=== PATIENT | male | born 1955 | race Caucasian/White ===

== ENCOUNTER 2021-05-13 07:29 | Outpatient (CLI) | payer BC, SELFPAY ==
--- NOTE | 2021-05-20 15:45 | WPDHOMESLEEP ---
Sleep Study - Home Unattended Date of Study: 05/13/21 Ordering Provider: Gavin Ricketts MD Interpreting Provider: Sultana Richards, DO Home Sleep Study Type: Apnea Link Air Height: 1.73 m Weight: 96.162 kg Body Mass Index: 32.2 Neck Circumference (inches): 16.5 [place]: 2 Reason for Sleep Study Unrefreshing sleep and daytime hypersomnia Sleep History The patient is a 65-year-old male with anxiety, GERD, hypertension, hyperlipidemia, lumbar go and vitamin D deficiency that had a home sleep test ordered by his primary care physician due to unrefreshing sleep and daytime hypersomnia. 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 He denies awakening from sleep short of breath. He frequently awakens at night with heartburn, belching or cough. He frequently snores loud enough that others complain. He occasionally has trouble sleeping when he has a cold. He denies waking up gasping for air throughout the night. He frequently has breathing problems at night observed by himself or others. He denies sweating excessively at night. He denies having heart palpitations or irregular heartbeats during the night. He denies falling asleep during the day and while driving. He denies sleep paralysis and cataplexy. He denies having trouble at work due to sleepiness. He rarely experiences vivid dreamlike scenes upon awakening or falling asleep. She he denies having nightmares. He occasionally remembers his dreams. He denies having thoughts racing through his mind. He denies feeling sad or depressed. He occasionally has anxiety. He frequently has muscular tension. He denies noticing parts of his body jerk. He denies kicking during the night. He denies having crawling and aching feelings in his legs as well as leg pain during the night. He denies grinding his teeth during sleep awakening with morning jaw pain. He is frequently bothered by pain during the day and occasionally awakened by pain during the night. He frequently wakes up feeling stiff in the morning with sore or achy muscles. He constantly wakes up pain in the neck, spine and other joints. He goes to bed at 10:00 p.m. on both weekdays and weekends. He takes him 10 minutes to fall asleep. He wakes up throughout the night to urinate. He can fall back asleep within 10 minutes. He wakes up at 5:30 a.m. on weekdays and 7:30 a.m. on the weekends. He typically gets 8 hours of sleep per night. he does not stay in bed after waking up in the morning. He currently lives with his . He does not consume any caffeinated beverages within 2 hours of bedtime. He does not engage in physical exercise before bedtime. He will watch television before falling asleep. He will take naps in the afternoon or the evening but they are not refreshing. He drinks 2 cups of caffeinated beverage per day. Will drink alcohol on the weekends. He denies tobacco and recreational drug use. [facility] Past Medical History Medical History Anxiety Back pain BMI 32.0-32.9,adult Chondrocalcinosis of both knees Degenerative arthritis of knee, bilateral Elevated fasting glucose Encounter to establish care GERD (gastroesophageal reflux disease) Hyperlipidemia Hypersomnia Hypertension Snoring Vitamin D deficiency Witnessed apneic spells Surgical History Surgical History History of carpal tunnel release of both wrists 2018 History of gastric surgery exploratory stomach surgery 1979 Hx of hernia repair stomach 1995 groin Previous back surgery 1988 2003 2011 Family History Family History Mother Cerebrovascular accident Diabetes mellitus Hypertension Depression Thyroid disorder Father Family history of Alzheimer's disease Family history of heart disease in male family member before age 55 Grandparent Cerebrovascular accident
[2021-05-20 15:54] VITALS: BMI 32.2
== END 2021-05-19 13:15 | disposition home or self-care (01) ==
LOC: ANHCSM 07:29
PROVIDERS: PCP Nurse Practitioner Family; Visit Provider Family Medicine
DX: G47.30 Sleep apnea, unspecified (principal); G47.33 Obstructive sleep apnea (adult) (pediatric)
CPT/HCPCS: 95806

== ENCOUNTER 2021-09-23 08:45 | Outpatient (RCR) | payer BC, SELFPAY ==
--- NOTE | 2021-09-09 15:59 | PTOPEVAL ---
Thank you for referring Wisam Stewart to [facility].? He is scheduled to be seen for therapy? 1x/week for 3 weeks. Please review, sign, date and return this plan of care KATHI. I agree with and certify that the following plan of care is medically necessary. Referring Physician Date Attending Provider: Eduin Matias MD Past Medical History Source of Past Medical History Patient Cardiovascular History Hx Hypertension Yes: meds Gastrointestinal History Hx Other Gastrointestinal Disorders Yes: exploratory abdominal surgery- at 22 yr old Musculoskeletal History Hx Back Pain Yes: intermittent Hx Orthopedic Surgery Yes: B carpal tunnel surgery Hx Spinal Surgery Yes: lumbar 3x; Hx Other Musculoskeletal Disorders Yes: B knee pain, have had injections Evaluation Information Diagnosis R distal tibial fracture- non surgical Onset July 19, 2021 Subjective Information had walking boot and crutches; Query Text:As Reported By Patient/ stopped using crutches few Family weeks ago; have been doing some exercises and moving ankle; is up and moving all day long, working on getting stronger and back to all of his normal things he does; Prior Level of Function Occupation heavy equiptment custom feed corn operator Activity of Daily Living Ability Independent Additional Prior Level of Function is off work now due to R ankle Comments injury; job does not require any lifting, drives back hoe; is getting stronger but not walking as fast and being careful not to twist ankle Pain Assessment Pain Scale Pain Scale Used Numeric (1 - 10) Self Report Pain Assessment Right Ankle(s) Reported Pain Level 1 Pain Description Aching,Soreness,Tightness Pain Frequency Chronic,Continuous Other Pain Description medial lower leg Lowest Pain Intensity 1 Greatest Pain Intensity 2 Pain Aggravating Factors Weight Bearing/Standing Additional Pain Score Comments can be up and walking around all day; Interventions Used Interventions Used By Clinicians Education,Exercise Gross Lower Extremity Range of Motion in long sitting: R ankle Comments active: DF 3'; PF 45', inversion 30', eversion 20'; R hip and knee WNL in supine Gross Lower Extremity Strength functional strength testing: -
--- NOTE | 2021-10-24 13:46 | PCPTNOTE ---
PHYSICAL THERAPY DISCHARGE REPORT 10-24-21 Attending Provider: Eduin Matias MD Patient:Wisam Stewart Date of :1955 Wisam has not returned for any further treatments since 09/23/2021, therefore he will be discharged at this time. He received 3 PT sessions, from September 09 to , then stopped attending therapy.The goals were not assessed. Thank you for referring this patient to [facility]. Please review, sign, date and return this discharge summary KATHI. I have been updated about the patient's current status and I agree with discharge from the above service at this time. Referring Physician Date
== END 2021-10-27 09:03 | disposition home or self-care (01) ==
LOC: ANHPT 08:45
PROVIDERS: PCP Nurse Practitioner Family; Visit Provider Orthopaedic Surgery
DX: S82.201D Unspecified fracture of shaft of right tibia, subsequent encounter for closed fracture with routine healing (principal)
CPT/HCPCS: 97110; 97112; 97140; 97161

== ENCOUNTER → 2022-04-13 08:39 | Outpatient (CLI) | payer BC, SELFPAY ==
--- NOTE | ~2022-04-13 | XR_ITS ---
Left Hand Technique: PA, oblique, and lateral views were obtained. Clinical History: Pain Findings: No acute fracture or dislocation is seen. Osseous alignment is anatomic. Joint spaces are p reserved. Soft tissues are unremarkable. Impression: Unremarkable left hand. 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
--- NOTE | ~2022-04-13 | XR_ITS ---
EXAMINATION: XR hand RT min 3V INDICATION: Right hand pain TECHNIQUE: Three views of the right hand are obtained. COMPARISON: None available FINDINGS: Bone alignment is normal. There is no acute fracture. There is moderate osteoarthritis invo lving multiple interphalangeal joints and in multiple metacarpophalangeal joints. The soft tissues ar e unremarkable. IMPRESSION: 1. Polyarticular osteoarthritis. 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
== END ==
PROVIDERS: PCP Nurse Practitioner Family; Visit Provider Nurse Practitioner Family
DX: M79.642 Pain in left hand (principal); M19.041 Primary osteoarthritis, right hand
CPT/HCPCS: 73130

== ENCOUNTER 2022-08-06 02:47 | Day surgery (SDC) | payer BC, SELFPAY ==
[2022-07-22 10:18] VITALS: BMI 30.8
--- NOTE | 2022-08-05 20:07 | PM.HPGS ---
History of Present Illness History of Present Illness Consent: Risks, benefits, and alternatives have been discussed and questions answered. Patient agrees to proceed with procedure. Chief complaint: family hx colon polyps, hx of colon polyps Narrative: Wisam Stewart is a 66 year old male referred for colon cancer screening Review of Systems Review of Systems: All systems reviewed & are unremarkable except as noted in HPI and below PMFSH Past Medical History Medical History Anxiety Back pain BMI 31.0-31.9,adult BMI 32.0-32.9,adult Chondrocalcinosis of both knees Degenerative arthritis of knee, bilateral Elevated fasting glucose Encounter to establish care GERD (gastroesophageal reflux disease) Hyperlipidemia Hypersomnia Hypertension Left hand pain Nausea and vomiting Nondisplaced fracture of shaft of right tibia Right hand pain Snoring Vitamin D deficiency Witnessed apneic spells Surgical History Surgical History History of carpal tunnel release of both wrists 2018 History of gastric surgery exploratory stomach surgery 1979 Hx of hernia repair stomach 1995 groin Previous back surgery 1988 2003 2011 Family History Family History Mother Cerebrovascular accident Diabetes mellitus Hypertension Depression Thyroid disorder Father Family history of Alzheimer's disease Family history of heart disease in male family member before age 55 Grandparent Cerebrovascular accident Social History Social History Smoking status: Never smoker Second hand tobacco smoke exposure: No Alcohol intake: current Alcohol use details: 2 Substance use: current Substance use type: does not use Living arrangements: with family Gender identity (if verbalized by the patient): Male Spiritual care concerns: No Meds Home Medications and Allergies Home Medications Medication Instructions Recorded Confirmed Type cholecalciferol (vitamin D3) 125 125 mcg PO DAILY 06/12/20 08/06/22 History mcg (5,000 unit) capsule melatonin 5 mg capsule 5 mg PO HS PRN Sleep 06/12/20 08/06/22 History omeprazole magnesium 20 mg 20 mg PO DAILY 06/12/20 08/06/22 History tablet,delayed release (Prilosec OTC) zinc 50 mg tablet 50 mg PO DAILY 06/12/20 08/06/22 History ascorbic acid (vitamin C) 500 mg 250 mg PO DAILY 04/08/21 08/06/22 History tablet loratadine 10 mg tablet 10 mg PO DAILY PRN allergy symptoms 04/08/21 08/06/22 History vamnwrihrllt-fbc-bjdxc acid-vit 1 tablet PO DAILY 07/24/21 08/06/22 History K-lycop 400 mcg-20 mcg-370 mcg tablet (Men's 50 Plus Multivitamin) omega 3-qzs-hqi-fish oil 100 1 cap PO DAILY 07/24/21 08/06/22 History mg-160 mg-1,000 mg capsule (Fish Oil) losartan 50 mg tablet 50 mg PO DAILY #90 tabs 07/29/21 08/06/22 Rx acetaminophen 650 mg 650 mg PO Q8H 07/31/21 08/06/22 History tablet,extended release (Tylenol Arthritis Pain) paroxetine HCl 20 mg tablet 20 mg PO DAILY #90 tabs 05/19/22 08/06/22 Rx fluticasone propionate 50 1 spray intranasal DAILY 07/22/22 08/06/22 History mcg/actuation nasal spray,suspension Allergies Allergy/AdvReac Type Severity Reaction Status Date / Time No Known Allergies Allergy Verified 08/06/22 11:29 Exam Const: General: alert Orientation/consciousness: patient oriented x3 Resp: Auscultation: clear to auscultation bilaterally Cardio: Rhythm: regular rhythm GI: GI Palp: Yes Soft to palpation and No Tenderness to palpation present (GI) Neuro: General: patient oriented x3 Assessment and Plan Assessment and plan (1) Colon cancer screening: Code(s): Z12.11 - Encounter for screening for malignant neoplasm of colon Status: Acute Assessment and Plan: Colonoscopy wi
[2022-08-06 11:31] VITALS: BP 131/77; PULSE 74; RESP 16; TEMP 36.1; O2SAT 97; BMI 31.0
[2022-08-06] MEDS: LACTATED RINGERS 1,000 ML 150 ML IV CONT (11:37)
--- NOTE | 2022-08-06 11:58 | WPDANESEPPF ---
Anes - Initial Pre Proc Eval Procedure: Operation Date: 08/06/22 13:00 Proposed Procedures p Colonoscopy - Kyle Urbano MD Date/Time: 08/06/22 11:58 Surgeon: Kyle Urbano MD Pre Op Diagnosis: family hx colon polyps, hx of colon polyps Patient Data Age: 66 Gender: M Height: 1.73 m Weight: 92.7 kg Last Vital Signs Temp 97 F L 08/06/22 11:31 Pulse 74 08/06/22 11:31 Resp 16 08/06/22 11:31 BP 131/77 08/06/22 11:31 Pulse Ox 97 08/06/22 11:31 O2 Del Method Room Air 08/06/22 11:31 Allergies Allergy/AdvReac Type Severity Reaction Status Date / Time No Known Allergies Allergy Verified 08/06/22 11:29 Home Medications Medication Instructions Recorded Confirmed Type cholecalciferol (vitamin D3) 125 125 mcg PO DAILY 06/12/20 08/06/22 History mcg (5,000 unit) capsule melatonin 5 mg capsule 5 mg PO HS PRN Sleep 06/12/20 08/06/22 History omeprazole magnesium 20 mg 20 mg PO DAILY 06/12/20 08/06/22 History tablet,delayed release (Prilosec OTC) zinc 50 mg tablet 50 mg PO DAILY 06/12/20 08/06/22 History ascorbic acid (vitamin C) 500 mg 250 mg PO DAILY 04/08/21 08/06/22 History tablet loratadine 10 mg tablet 10 mg PO DAILY PRN allergy symptoms 04/08/21 08/06/22 History fkhibtyhnsaf-otd-isuwv acid-vit 1 tablet PO DAILY 07/24/21 08/06/22 History K-lycop 400 mcg-20 mcg-370 mcg tablet (Men's 50 Plus Multivitamin) omega 3-krn-itj-fish oil 100 1 cap PO DAILY 07/24/21 08/06/22 History mg-160 mg-1,000 mg capsule (Fish Oil) losartan 50 mg tablet 50 mg PO DAILY #90 tabs 07/29/21 08/06/22 Rx acetaminophen 650 mg 650 mg PO Q8H 07/31/21 08/06/22 History tablet,extended release (Tylenol Arthritis Pain) paroxetine HCl 20 mg tablet 20 mg PO DAILY #90 tabs 05/19/22 08/06/22 Rx fluticasone propionate 50 1 spray intranasal DAILY 07/22/22 08/06/22 History mcg/actuation nasal spray,suspension Patient hx anesthesia problems: none Family hx anesthesia problems: none Results Review: All pre-operative results and documents have been reviewed as part of the pre-operative evaluation. [facility] Past Medical History Medical History (Updated 08/05/22 @ 20:08 by Kyle Urbano MD) Anxiety Back pain BMI 31.0-31.9,adult BMI 32.0-32.9,adult Chondrocalcinosis of both knees Degenerative arthritis of knee, bilateral Elevated fasting glucose Encounter to establish care GERD (gastroesophageal reflux disease) Hyperlipidemia Hypersomnia Hypertension Left hand pain Nausea and vomiting Nondisplaced fracture of shaft of right tibia Right hand pain Snoring Vitamin D deficiency Witnessed apneic spells Surgical History Surgical History History of carpal tunnel release of both wrists 2017 History of gastric surgery exploratory stomach surgery 1979 Hx of hernia repair stomach 1994 groin Previous back surgery 1988 2003 2011 Family History Family History Mother Cerebrovascular accident Diabetes mellitus Hypertension Depression Thyroid disorder Father Family history of Alzheimer's disease Family history of heart disease in male family member before age 55 Grandparent Cerebrovascular accident Social History Social History (Updated 04/13/22 @ 08:09 by Ana Joyner [facility]) Smoking status: Never smoker Second hand tobacco smoke exposure: No Alcohol intake: current Alcohol use details: 2 Substance use: current Substance use type: does not use Living arrangements: with family Gender identity (if verbalized by the patient): Male Spiritual care concerns: No Anes - Eval Final PreProcedure Day of Procedure 08/06/22 11:58 Patient weight: normal Heart: regular rate and rhythm Lungs: clear to auscultation Airway: Mallampati scale class II Neurological: alert and oriented Last oral intake: >/= 8 hours ASA classifi
[2022-08-06 12:50] VITALS: BP 115/68; PULSE 68; RESP 19; O2SAT 95
[2022-08-06 13:00] VITALS: BP 125/79; PULSE 75; RESP 16; O2SAT 95
[2022-08-06 13:10] VITALS: BP 135/90; PULSE 66; RESP 15; O2SAT 99
== END 2022-08-06 13:22 | disposition home or self-care (01) ==
PROVIDERS: PCP Nurse Practitioner Family; Visit Provider Internal Medicine Gastroenterology
PROC: 0DJD8ZZ Inspection of Lower Intestinal Tract, Via Natural or Artificial Opening Endoscopic (ICD-10-PCS; CPT 45378; principal; 2022-08-06 13:00)
DX: Z12.11 Encounter for screening for malignant neoplasm of colon (principal); Z86.010 Personal history of colon polyps; Z83.71 Family history of colonic polyps; I10 Essential (primary) hypertension; E78.5 Hyperlipidemia, unspecified; K21.9 Gastro-esophageal reflux disease without esophagitis; E55.9 Vitamin D deficiency, unspecified; F41.9 Anxiety disorder, unspecified
CPT/HCPCS: 45378; J2704; J7120

== ENCOUNTER → 2022-12-02 15:06 | Outpatient (CLI) | payer BC, SELFPAY ==
--- NOTE | ~2022-12-02 | US_ITS ---
US soft tissue abdomen 12/02/2022 15:25 Indication: Abdominal pain and swelling. Palpable lump. Procedure: High-resolution Limited ultrasound of the abdomen Comparison: No prior studies for comparison. Findings: To the right of midline superior to the umbilicus there is a focal discontinuity of the abd ominal wall musculature with intrusion of what appears to be mobile bowel, consistent with hernia. Th e neck of the hernia measures 8 mm. There is movement of bowel within the hernia with Valsalva maneuv er. Impression: 1: Focal anterior abdominal wall hernia measuring 8 mm containing bowel to the right of midline super ior to the umbilicus. Reviewed, dictated and finalized at location L. Impression: 1: Focal anterior abdominal wall hernia measuring 8 mm containing bowel to the right of midline superior to the umbilicus.
== END ==
PROVIDERS: PCP Family Medicine; Visit Provider Nurse Practitioner Family
DX: R19.00 Intra-abdominal and pelvic swelling, mass and lump, unspecified site (principal)
CPT/HCPCS: 76705

== ENCOUNTER → 2023-01-26 09:15 | Outpatient (CLI) | payer BC, SELFPAY ==
--- NOTE | ~2023-01-26 | CT_ITS ---
EXAMINATION: CT abdomen pelvis wo con DATE: 01/26/2023 09:40 INDICATION: Incisional hernia without obstruction or gangrene. TECHNIQUE: Computed tomography (CT) of the abdomen and pelvis was performed without intravenous contr ast. Automated exposure control and iterative reconstruction technique were employed. The dose-length product was 1077.78 mGy-cm. COMPARISON: CT abdomen and pelvis 06/07/15 FINDINGS: The visualized portions of the lung bases demonstrate mild atelectasis. There is mild scarr ing in paraspinal right lower lobe. A calcified right lung nodule and calcified right hilar and media stinal lymph nodes are consistent with old granulomatous disease. No pleural effusion. The heart size is normal. There are coronary artery calcifications. No pericardial effusion. There are cysts in the liver measuring up to 2.2 cm. There is diffuse hepatic steatosis. There are gallstones in the gallbl adder, which is normal in size. The spleen, pancreas, adrenal glands, and kidneys are normal. There i s no urolithiasis. There is diverticulosis of the colon without evidence of diverticulitis. There are no dilated loops of bowel. The appendix is normal. The prostate is mildly enlarged. There is a left inguinal hernia containing fat. Aortic atherosclerosis is noted. There are no pathologically enlarged lymph nodes. There is no free intraperitoneal fluid. There is a supraumbilical ventral hernia contai gustavo fat. There are changes of anterior fusion procedure at L5-S1 and posterior fusion procedure from L3 to L5. There is severe lumbar spondylosis. There are chronic compression fractures of T12 and L1. IMPRESSION: 1. Supraumbilical ventral hernia containing fat. 2. Left inguinal hernia containing fat. Reviewed, dictated and finalized at location E. IDENT AND CEO
== END ==
PROVIDERS: PCP Family Medicine; Visit Provider Surgery
DX: K43.2 Incisional hernia without obstruction or gangrene (principal); K40.90 Unilateral inguinal hernia, without obstruction or gangrene, not specified as recurrent
CPT/HCPCS: 74176

== ENCOUNTER 2023-01-27 13:29 | Outpatient (CLI) | payer BC, SELFPAY ==
--- NOTE | 2023-01-27 13:30 | ECG_ITS ---
Measurements Intervals [place] Rate: 69 P: 35 [place]: 148 QRS: 1 QRSD: 105 T: -7 QT: 361 QTc: 389 Interpretive Statements SINUS RHYTHM BORDERLINE T WAVE ABNORMALITY- INFERIOR LEADS BASELINE ARTIFACT- I, II, III, AVR, AVL, AVF BORDERLINE ECG NO PREVIOUS ECG AVAILABLE FOR COMPARISON Electronically Signed On 01-27-2023 19:58:37 BARGAIN TABLE CLERK by Raz Uribe D.O.
== END 2023-01-27 13:30 | disposition home or self-care (01) ==
LOC: ANHSURGERY 13:34
PROVIDERS: PCP Family Medicine; Visit Provider Surgery
DX: K43.2 Incisional hernia without obstruction or gangrene (principal); I10 Essential (primary) hypertension; Z01.818 Encounter for other preprocedural examination; R94.31 Abnormal electrocardiogram [ECG] [EKG]
CPT/HCPCS: 36415; 86850; 86900; 86901; 93005

== ENCOUNTER 2023-02-03 01:38 | Day surgery (SDC) | payer BC, SELFPAY ==
[2023-01-27 12:46] VITALS: BMI 32.0
--- NOTE | 2023-01-27 12:55 | PC.NURSE ---
PRE-OP INSTRUCTIONS, PLEASE READ CAREFULLY Report to the Outpatient Waiting Room, entrance under the green pavilion located off [facility], at time _0600_ on date _02/03/23_. Planned Procedure Time: _0730_. Time changes happen often and if your time is changed the preop area will call you the afternoon before. - You and your visitor will be asked to self-screen and do not enter if you have any COVID symptoms. - A mask is optional within the hospital at this time. Patients may have clear liquids (water, carbonated beverages, clear teas, apple juice) until 3 hours prior to surgery (0430 AM) with a maximum of 20 ounces. - No food from midnight until time of surgery Take the following medications with a SIP of water the morning of surgery: _TYLENOL IF NEEDED_ DO NOT STOP ANY OF YOUR OTHER PRESCRIPTION MEDICATIONS PRIOR TO SURGERY ?EXCEPT THE FOLLOWING Medications to discontinue per ANESTHESIA - _MULTIVITAMIN/SUPPLEMENTS 3 DAYS PRIOR TO SURGERY, Date to take last dose 01/30/23_ Please no make-up, nail romanian, hairspray, perfume, deodorant, or body powder the day of surgery. No jewelry (including any body piercings) or valuables the day of surgery, leave them at home. Please take a shower or bath the night before, or the morning of, surgery with an antibacterial soap. Wear comfortable, loose fitting clothing. - Jewelry must be removed prior to entering the operating room. Rings and piercings that are not removed may be cut off. - The hospital will not accept responsibility for valuables. - Please leave all valuables, including medications, at home the day of surgery. If you are going home after surgery, a licensed hi low truck driver must drive you home. - NO public transportation without another adult if you receive anesthesia. - We recommend that an adult stay with you for 24 hours following discharge. - We also recommend that you do not drive, make important decision, drink alcoholic beverages, or take any drugs that were not prescribed by your health care provider for at least 24 hours after your discharge time. Follow any additional instructions given to you from your surgeon. HIBICLENS SHOWER AM OF SURGERY If you or anyone in your household have experienced Covid symptoms in the past week, please notify your surgeon or the nurse liaison at the phone number below for possible testing. Telephone instructions given to _PATIENT_and asked if any additional questions and then verbalized understanding. Patient advised to call surgeon office or pre surgery nurse liaison [phone] if any additional questions.
[2023-02-03] VITALS (12 sets, daily range): BP systolic 123–149; BP diastolic 62–88; PULSE 75–104; RESP 12–18; TEMP 36.3–36.7; O2SAT 89–100
--- NOTE | 2023-02-03 09:39 | WPDANESEPPF ---
Anes - Initial Pre Proc Eval Procedure: Operation Date: 02/03/23 12:45 Proposed Procedures p Laparoscopic Incisional Hernia Repair with Mesh Davinci Assisted - Collin Knutson DO Date/Time: 02/03/23 09:39 Surgeon: Collin Knutson DO Pre Op Diagnosis: 2cm incisional hernia Patient Data Age: 67 Gender: M Height: 1.73 m Weight: 95.45 kg Allergies Allergy/AdvReac Type Severity Reaction Status Date / Time No Known Allergies Allergy Verified 02/03/23 11:18 Home Medications Medication Instructions Recorded Confirmed Type cholecalciferol (vitamin D3) 125 125 mcg PO DAILY 06/12/20 02/03/23 History mcg (5,000 unit) capsule zinc 50 mg tablet 50 mg PO DAILY 06/12/20 02/03/23 History ascorbic acid (vitamin C) 500 mg 250 mg PO DAILY 04/08/21 02/03/23 History tablet rthrblinxzed-wxy-aggrb acid-vit 1 tablet PO DAILY 07/24/21 02/03/23 History K-lycop 400 mcg-20 mcg-370 mcg tablet (Men's 50 Plus Multivitamin) omega 8-pln-aby-fish oil 100 1 cap PO DAILY 07/24/21 02/03/23 History mg-160 mg-1,000 mg capsule (Fish Oil) acetaminophen 650 mg 650 mg PO Q8H PRN Pain 07/31/21 02/03/23 History tablet,extended release (Tylenol Arthritis Pain) paroxetine HCl 20 mg tablet 20 mg PO DAILY #90 tabs 05/19/22 02/03/23 Rx fluticasone propionate 50 1 spray intranasal DAILY 07/22/22 02/03/23 History mcg/actuation nasal spray,suspension losartan 50 mg tablet 50 mg PO DAILY #90 tabs 09/10/22 02/03/23 Rx omeprazole magnesium 20 mg 20 mg PO DAILY 02/03/23 02/03/23 History tablet,delayed release (Prilosec OTC) Patient hx anesthesia problems: none Family hx anesthesia problems: none Results Review: All pre-operative results and documents have been reviewed as part of the pre-operative evaluation. [facility] Past Medical History Medical History Abdominal lump Anxiety Back pain BMI 31.0-31.9,adult BMI 32.0-32.9,adult Chondrocalcinosis of both knees Degenerative arthritis of knee, bilateral Elevated fasting glucose Encounter to establish care GERD (gastroesophageal reflux disease) Hyperlipidemia Hypersomnia Hypertension Left hand pain Nausea and vomiting Nondisplaced fracture of shaft of right tibia Right hand pain Snoring Vitamin D deficiency Witnessed apneic spells Surgical History Surgical History History of carpal tunnel release of both wrists 2018 History of gastric surgery exploratory stomach surgery 1979 Hx of hernia repair stomach 1994 groin Previous back surgery 1988 2003 2011 Family History Family History Mother Cerebrovascular accident Diabetes mellitus Hypertension Depression Thyroid disorder Father Family history of Alzheimer's disease Family history of heart disease in male family member before age 55 Grandparent Cerebrovascular accident Social History Social History (Updated 09/10/22 @ 09:03 by Ana Joyner [facility]) Smoking status: Never smoker Second hand tobacco smoke exposure: No Alcohol intake: current Alcohol use details: 30+BEER/MONTH Substance use: never Substance use type: former substance user Lack of Transportation: No Lack of Food: Never True Current Housing: I Have Housing Concerned About Future Housing: No Difficulty Paying Gas/Electric Bills: No Difficulty Paying for Meds: No Currently Unemployed: No Education: High School Diploma/GED Difficulty w/ Childcare or Family Care: No Living arrangements: with family Gender identity (if verbalized by the patient): Male Spiritual care concerns: No Anes - Eval Final PreProcedure Day of Procedure 02/03/23 09:39 Patient weight: obese Heart: regular rate and rhythm Lungs: clear to auscultation Airway: Mallampati scale class II and special considerations (upper partia
[2023-02-03] MEDS: ACETAMINOPHEN 500 MG TABLET 1000 MG PO (11:23)
[2023-02-03] MEDS: LACTATED RINGERS 1,000 ML 30 ML IV CONT ×2 (11:30→15:03)
[2023-02-03] MEDS: KETOROLAC 15 MG/ML VIAL (*BKC) IV PUSH (11:32)
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
--- NOTE | 2023-02-03 12:36 | WPDHPUPDATE1 ---
History and Physical Update Update Date/Time: 02/03/23 12:36 History and Physical has been reviewed, including an updated exam of the patient. There are NO changes in the patient's condition. Risks, benefits, and alternatives have been discussed and questions answered. Patient agrees to proceed with procedure.
[2023-02-03] MEDS: BUPIVACAINE/EPINEPHRINE 0.5% 50 ML VIAL 34 ML INFILTRATE (12:51)
[2023-02-03] MEDS: ceFAZolin 2 GM/D5W 50 ML 2 GM/50 ML BAG IVPB (12:51)
--- NOTE | 2023-02-03 15:15 | PM.OP ---
Procedure Note - Brief Procedure Note - Brief Date of procedure: 02/03/23 Incisional hernia Post-op diagnosis: Same (1 cm Incisional hernia) Procedure performed: 1. Diagnostic laparoscopy 2. Open repair of small-bowel enterotomy 3. Open 1 cm incisional hernia repair Surgeon: Collin Knutson DO Anesthesia: GETA and local (0.5% bupivacaine with epinephrine) Findings: Laparoscopic incisional hernia repair was attempted. Patient extensive adhesions to the left upper quadrant abdominal wall and I was unable to safely enter into the abdominal cavity for completion of the laparoscopic hernia repair. The laparoscopic port caused an enterotomy on the small bowel. I aborted the laparoscopic procedure made a small incision in the left upper quadrant and explored the small bowel. I was able to find the enterotomy which was about a 3 mm enterotomy on the surface of the small bowel. This was repaired using 3-0 silk sutures in 2 layers. I then chose to perform the incisional hernia repair open. A 6 cm vertical incision was made directly over the hernia defect. The hernia was identified as a 1 cm hernia containing fat. This was repaired primarily using 0 Ethibond bczpvl-qy-cwflx sutures. Estimated blood loss (mL): 5 Complications: Other complications (Small-bowel enterotomy identified and repaired at time of surgery)
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
[2023-02-03] MEDS: HYDROcodone/acetaminophen (*CRX) 10-325 MG TABLET 1 TAB PO (18:39)
--- NOTE | 2023-02-03 19:28 | PC.NURSE ---
Pt arrived to the unit and was alert and oriented on arrival. Pt family at bedside. Pt denied any pain initially, but began to experience pain once up in chair. Abd binder in place. Incisions inspected, glue clean, dry, and intact. Belly distended, but soft and round. Pt vital signs stable. Pt tolerating diet well. Report was given to oncoming nurse. Pt will continue to be monitored for any changes in status.
[2023-02-03] MEDS: HYDROcodone/acetaminophen (*CRX) 5-325 MG TABLET 1 TAB PO (23:22)
[2023-02-04] VITALS: BP 125/59; PULSE 85; RESP 14; TEMP 36.3; O2SAT 95
[2023-02-04 00:44] VITALS: BP 125/59; PULSE 85; RESP 14; TEMP 36.3; O2SAT 95
[2023-02-04 04:00] VITALS: BP 120/71; PULSE 87; RESP 18; TEMP 35.9; O2SAT 96
[2023-02-04 06:09] LABS: Hematocrit 38.1 % (42.0-52.0); Hemoglobin 13.1 g/dL (14.0-18.0); Mean Corpuscular HGB Conc 34.4 g/dl (32-36); Mean Corpuscular Hemoglobin 30.5 pg (26-34); Mean Corpuscular Volume 88.6 fl (80-100); Mean Platelet Volume 9.5 fl (7.4-10.4); Platelet Count Result 255 k/mm3 (150-375); White Blood Count 17.4 K/mm3 (4.5-10.0)
[2023-02-04 06:17] LABS: Anion Gap 9 mmol/L (8-16); Blood Urea Nitrogen 24 mg/dL (9-20); Calcium 8.8 mg/dL (8.4-10.2); Carbon Dioxide 25 mmol/L (22-30); Chloride 102 mmol/L (98-107); Estimated CRCL calculation 101 ml/min; Estimated Glomerular Filt Rate > 60; Glucose 123 mg/dL (65-110); Potassium 3.8 mmol/L (3.4-5.0); Sodium 136 mmol/L (137-145)
[2023-02-04] MEDS: HYDROcodone/acetaminophen (*CRX) 10-325 MG TABLET 1 TAB PO ×2 (06:24→12:06)
[2023-02-04] MEDS: PARoxetine 20 MG TABLET PO (09:00)
[2023-02-04] MEDS: PANTOPRAZOLE 40 MG TABLET PO (09:00)
[2023-02-04] MEDS: LOSARTAN POTASSIUM 50 MG TABLET PO (09:00)
[2023-02-04 09:46] VITALS: BP 127/67; PULSE 89; RESP 16; TEMP 37.2; O2SAT 95
--- NOTE | 2023-02-04 11:08 | PM.DS ---
DS: Admitting Diagnosis Discharge Date 02/04/2023 Admitting Diagnosis Incisional hernia, small-bowel enterotomy DS: Discharge Diagnosis Discharge Diagnosis (1) Incisional hernia: Qualifiers: Obstruction and gangrene presence: without obstruction or gangrene Qualified Code(s): K43.2 - Incisional hernia without obstruction or gangrene Code(s): K43.2 - Incisional hernia without obstruction or gangrene Status: Acute (2) Small intestine injury: Qualifiers: Encounter type: initial encounter Qualified Code(s): S36.409A - Unspecified injury of unspecified part of small intestine, initial encounter Code(s): S36.409A - Unspecified injury of unspecified part of small intestine, initial encounter Status: Acute DS: Summary Hospital Course Reason for hospitalization: Recovery after incisional hernia repair Hospital Course: This is a 67-year-old man who presented for incisional hernia repair. He underwent attempted laparoscopic incisional hernia repair on 02/03/2023. The surgery was complicated by multiple intra-abdominal adhesions which also led to an iatrogenic injury to the small bowel. The small bowel enterotomy was repaired and the incisional hernia was repaired with an open approach. He was then admitted for observation and slow advancement of the diet. Pain was controlled with IV and oral pain medications as needed. On postop day 1, I discussed the surgical findings with the patient and discuss that there was an injury to the small intestine that was identified and repaired. He was doing well on postop day 1 and was tolerating a diet. Pain was well controlled. He was up ambulating with minimal difficulty. Discussion was made with the patient about monitoring very closely for any signs of infection or worsening abdominal pain. His incisions were healing well and he was remaining hemodynamically stable. He was discharged on 02/04/2023. Status at Discharge Functional status at discharge: independent ambulation Overall status at discharge: patient is progressing back to baseline Time Spent with Patient Time attestation: Total time spent providing and/or coordinating discharge services: Time spent: Less than 30 minutes Exam Const: General: comfortable, no acute distress and alert Orientation/consciousness: patient oriented x3 Resp: Effort & Inspection: normal respiratory effort Auscultation: clear to auscultation bilaterally Cardio: Rate: regular rate Rhythm: regular rhythm Heart sounds: S1 normal heart sound present and S2 normal heart sound present GI: Inspection: non-distended and incision (Intact with glue) GI Palp: Yes Soft to palpation, Yes Tenderness to palpation present (GI) (Incisional), No Guarding due to palpation present (GI) and No Rebound tenderness present DS: Data Data Completed and Pending Pending studies at discharge: Pending at discharge 02/03/23 14:33 Surgical [PTH] Routine Labs on day of discharge: Labs from last 24 hours 02/04/23 05:49 WBC 17.4 H RBC 4.30 L Hgb 13.1 L Hct 38.1 L MCV 88.6 MCH 30.5 MCHC 34.4 RDW 13.0 Plt Count 255 MPV 9.5 Sodium 136 L Potassium 3.8 Chloride 102 Carbon Dioxide 25 Anion Gap 9 BUN 24 H Creatinine 0.70 Estim Creat Clear Calc 101 Estimated GFR > 60 Glucose 123 H Calcium 8.8 Discharge Plan Discharge Patient Disposition: Home, Self-Care Discharge Instructions: DISCHARGE INSTRUCTION SHEET FOR HERNIA, GALLBLADDER AND APPENDIX SURGERIES DR. GASTON PATIENT TO TAKE HOME 1. May shower in 24 hours, no soaking in bath x 2weeks. 2. Call office for: Wound increasingly painful or bleeding Vomiting Fever of greater than 101 degrees 3. If no bowel movement for three days, take 1 oz. (30 ml) Milk of Magnesia or MiraLax 17g 1 to 2 times daily. 4. No heavy lifting > 10-15 pounds x 6-8 weeks for hernia repairs and 2 weeks for laparoscopic cholecystectomy or ap
--- NOTE | 2023-02-04 15:20 | PCCCNOTE ---
On 02/04/23, the student, [Berta Vogel], provided care and completed [facility] documentation on this patient. I have reviewed the student's documentation and agree with the findings.
== END 2023-02-04 12:38 | disposition home or self-care (01) ==
LOC: ANHSURGERY 13:21 → ANH3MEDSUR 16:05
PROVIDERS: PCP Family Medicine; Visit Provider Surgery
PROC: (CPT 49593; principal; 2023-02-03 12:45)
DX: K43.2 Incisional hernia without obstruction or gangrene (principal); K91.72 Accidental puncture and laceration of a digestive system organ or structure during other procedure; K66.0 Peritoneal adhesions (postprocedural) (postinfection); K21.9 Gastro-esophageal reflux disease without esophagitis; E78.5 Hyperlipidemia, unspecified; I10 Essential (primary) hypertension; E55.9 Vitamin D deficiency, unspecified; F41.9 Anxiety disorder, unspecified
CPT/HCPCS: 49593; 36415; 80048; 85027; 88302; A9270; J0690; J1100; J1170; J1885; J2250; J2405; J2704; J3010; J7120

== ENCOUNTER → 2023-04-14 08:42 | Outpatient (CLI) | payer BC, OTHER, SELFPAY ==
--- NOTE | ~2023-04-14 | XR_ITS ---
EXAMINATION: XR shoulder RT min 2V INDICATION: Right shoulder pain TECHNIQUE: Four views of the right shoulder are submitted. COMPARISON: 06/09/2018 FINDINGS: Normal alignment. No fracture. There is moderate osteoarthritis of the acromioclavicular an d glenohumeral joints. Soft tissues are unremarkable. IMPRESSION: 1. Osteoarthritis without acute osseous abnormality. Reviewed, dictated and finalized at location [facility]. [facility] [facility]
== END ==
PROVIDERS: PCP Family Medicine; Visit Provider Nurse Practitioner Family
DX: M19.011 Primary osteoarthritis, right shoulder (principal)
CPT/HCPCS: 73030

== ENCOUNTER 2023-11-04 10:39 | Outpatient (CLI) | payer OTHER, SELFPAY ==
--- NOTE | ~2023-11-04 | MR_ITS ---
MRI of the right shoulder Technique: Axial proton-density fat-sat images, coronal proton density fat-sat and T2 fat-sat images, and sagittal T1-weighted and T2 fat-sat images were acquired. Clinical History: Pain Findings: There is moderate AC joint degenerative change, with small subacromial spur and prominent b aron productive change of the distal clavicle. Coracoclavicular, coracoacromial, and coracohumeral lig aments are intact. There is a 0.8 x 0.7 cm full-thickness tear at the anterior, distal supraspinatus tendon insertion. T here is background severe supraspinatus tendinosis. Infraspinatus tendon is intact, without partial o r full-thickness tear. There is partial thickness articular surface tearing of the distal subscapular is tendon as it overlies the bicipital groove. Tendon of long head of the biceps demonstrates perchin g along the medial aspect of the proximal bicipital groove, with intra-articular tendinosis. No definite labral tear identified. Inferior glenohumeral ligament is intact. There is minimal fluid in the subacromial/subdeltoid bursa. No muscle atrophy or edema seen. No degenerative change of the glenohumeral joint. Impression: 0.8 x 0.7 cm full-thickness tear at the anterior, distal supraspinatus tendon insertion. Moderate grade partial thickness articular surface tearing of the distal subscapularis tendon with as sociated perching of the biceps tendon along the medial aspect of the proximal bicipital groove. Moderate AC joint degenerative change. Background rotator cuff tendinosis, as above. Reviewed, dictated and finalized at [facility]. Impression: 0.8 x 0.7 cm full-thickness tear at the anterior, distal supraspinatus tendon i nsertion. Moderate grade partial thickness articular surface tearing of the distal subsca pularis tendon with associated perching of the biceps tendon along the medial a spect of the proximal bicipital groove. Moderate AC joint degenerative change. Background rotator cuff tendinosis, as above.
== END 2023-11-04 10:40 ==
PROVIDERS: PCP Family Medicine; Visit Provider Orthopaedic Surgery
DX: S46.811A Strain of other muscles, fascia and tendons at shoulder and upper arm level, right arm, initial encounter (principal); M25.511 Pain in right shoulder
CPT/HCPCS: 73221

== ENCOUNTER 2023-12-26 08:08 | Emergency (ER) | payer OTHER, SELFPAY ==
--- NOTE | ~2023-12-26 | CT_ITS ---
Noncontrast CT scan of the lumbar spine CLINICAL HISTORY: Back pain TECHNIQUE: Axial noncontrast imaging of the lumbar spine was performed. Sagittal and coronal reformat melissa images were constructed. Dose reduction technique was used on this scan by utilizing automated ex posure control and iterative reconstruction technique. The dose-length product (DLP) was 912.51 mGy-c m. FINDINGS: No acute fracture seen. There is posterior fusion from L3 through L5, with bilateral rods a nd transpedicular screws present. Interbody fusion device present at L5-S1 disc space. There is 4 mm retrolisthesis of L2 over L3. There is 5 mm anterolisthesis of L4 over L5. At L1-L2, there is moderate degenerative disc narrowing. There is diffuse disc bulge and moderate fac et arthropathy. No jeovany central canal stenosis. There is moderate to advanced bilateral neural samir inal narrowing. At L2-L3, there is advanced degenerative disc narrowing. There is disc bulge and advanced facet arthr opathy. Probable mild central canal stenosis. There is severe right neural foraminal narrowing, and m oderate to severe left neural foraminal narrowing. L3-L4, there is advanced degenerative disc narrowing. There is posterior decompression. No jeovany spin al canal stenosis evident. There is moderate to advanced bilateral neural foraminal narrowing. At L4-L5, there is posterior decompression. No jeovany spinal canal stenosis. There is moderate to adva nced bilateral neural foraminal narrowing. At L5-S1, there is no central canal stenosis. There is moderate bilateral neural foraminal narrowing. Paravertebral soft tissues are unremarkable. Impression: No definite acute abnormality seen. Postoperative changes at the lower lumbar spine, as above. 4 mm retrolisthesis of L2 over L3. 5 mm anterolisthesis of L4 over L5. Moderate to advanced degenerative spondylosis, as above. Reviewed, dictated and finalized at location M. Impression: No definite acute abnormality seen. Postoperative changes at the lower lumbar spine, as above. 4 mm retrolisthesis of L2 over L3. 5 mm anterolisthesis of L4 over L5. Moderate to advanced degenerative spondylosis, as above.
[2023-12-26 08:18] VITALS: BP 145/65; PULSE 81; RESP 20; TEMP 36.4; O2SAT 100
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
[2023-12-26] MEDS: HYDROmorphone HCL INJ (*CRX) 1 MG/ML SYR 0.5 MG IV PUSH (08:45)
[2023-12-26] MEDS: dexAMETHasone SOD PHOS INJ 10 MG/ML 1 ML VIAL IM (08:45)
[2023-12-26] MEDS: CYCLOBENZAPRINE HCL 10 MG TABLET PO (08:45)
[2023-12-26] MEDS: HYDROcodone/acetaminophen (*CRX) 5-325 MG TABLET 1 TAB PO (10:08)
[2023-12-26 10:29] VITALS: BP 156/80; PULSE 83; RESP 18; O2SAT 97
== END 2023-12-26 10:31 | disposition home or self-care (01) ==
PROVIDERS: Emergency Provider Emergency Medicine; PCP Family Medicine
DX: M54.42 Lumbago with sciatica, left side (principal); M54.41 Lumbago with sciatica, right side; I10 Essential (primary) hypertension; E78.5 Hyperlipidemia, unspecified; E55.9 Vitamin D deficiency, unspecified; M19.041 Primary osteoarthritis, right hand; M17.0 Bilateral primary osteoarthritis of knee; K21.9 Gastro-esophageal reflux disease without esophagitis; M47.816 Spondylosis without myelopathy or radiculopathy, lumbar region; Z79.899 Other long term (current) drug therapy
CPT/HCPCS: 72131; 96372; 96374; 99284; A9270; J1100; J1171

== ENCOUNTER 2023-12-27 02:28 | Day surgery (SDC) | payer OTHER, SELFPAY ==
--- NOTE | 2023-12-20 10:30 | PC.NURSE ---
Report to the Outpatient Waiting Room, entrance under the green pavilion located off [facility], at time _6 AM on date _12/27/23 . Planned Procedure Time: _7:30 AM .? Time changes happen often and if your time is changed the preop area will call you the afternoon before. - You and your visitor will be asked to self-screen and do not enter if you have any COVID symptoms. Please call surgeon if you need to reschedule. - A mask is optional within the hospital at this time. Patients may have clear liquids (water, carbonated beverages, clear teas, apple juice) until 3 hours prior to surgery ( 4:30 AM)with a maximum of 20 ounces. - No food from midnight until time of surgery and no smoking - Infants may have breast milk until 4 hours before surgery, infant formula 6 hours prior to surgery. - Children will be allowed to drink immediately following surgery.? If applicable, please bring a bottle or sippy cup to assist with drinking. Juice, water, soda, and popsicles are readily available.? For infants on formula, please bring formula the day of surgery.? Pacifiers are allowed. Take only the following medications with a SIP of water on the morning of surgery: _PAROXETINE DO NOT STOP ANY OF YOUR OTHER PRESCRIPTION MEDICATIONS PRIOR TO SURGERY EXCEPT THE FOLLOWING Medications to discontinue per physician HOLD ALL VITAMINS AND SUPPLEMENTS 3 DAYS PRE OP. HOLD IBUPROFEN PER DR DORADO Date to take last dose 12/23/23 Please no make-up, nail portuguese, hairspray, perfume, deodorant, or body powder the day of surgery.? No jewelry (including any body piercings) or valuables the day of surgery, leave them at home.? Please take a shower or bath the night before, or the morning of, surgery with an antibacterial soap.? Wear comfortable, loose fitting clothing.? Children are encouraged to wear pajamas. - Jewelry must be removed prior to entering the operating room.? Rings and piercings that are not removed may be cut off. - The hospital will not accept responsibility for valuables.? - Please leave all valuables, including medications, at home the day of surgery. If you are going home after surgery, a licensed driver starting gate must drive you home.? - NO public transportation without another adult if you receive anesthesia. - We recommend that an adult stay with you for 24 hours following discharge. - We also recommend that you do not drive, make important decision, drink alcoholic beverages, or take any drugs that were not prescribed by your health care provider for at least 24 hours after your discharge time. Follow any additional instructions given to you from your surgeon. Telephone instructions given to PT AND AMADOU and asked if any additional questions and then verbalized understanding. Patient advised to call surgeon office or pre surgery nurse liaison [phone] if any additional questions.
[2023-12-20 10:36] VITALS: BMI 28.8
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
[2023-12-27] VITALS (8 sets, daily range): BP systolic 137–154; BP diastolic 72–80; PULSE 73–83; RESP 11–16; TEMP 36.2–36.8; O2SAT 97–100
[2023-12-27] MEDS: ACETAMINOPHEN 500 MG TABLET 1000 MG PO (06:29)
--- NOTE | 2023-12-27 06:56 | WPDHPUPDATE1 ---
History and Physical Update Update Date/Time: 12/27/23 06:56 History and Physical has been reviewed, including an updated exam of the patient. There are NO changes in the patient's condition. Risks, benefits, and alternatives have been discussed and questions answered. Patient agrees to proceed with procedure.
[2023-12-27] MEDS: LACTATED RINGERS 1,000 ML 30 ML IV CONT (06:59)
[2023-12-27] MEDS: KETOROLAC 15 MG/ML VIAL (*BKC) IV PUSH (07:00)
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
--- NOTE | 2023-12-27 07:28 | WPDANESPNB ---
Anes - Peripheral Nerve Block Date/Time: 12/27/23 07:28 I have discussed with the patient/family/POA the placement of a peripheral nerve block for post-operative pain management, including associated risks, benefits, complications, and side effects. Alternative methods of post-operative analgesia were detailed. Questions were solicited and answers provided to the satisfaction of the patient/family/POA. Time-Out: A pre-procedural Time-Out was completed immediately before starting the procedure and confirmed: Patient Identification, Site, Procedure, Patient Position and the Availability of Requisite Equipment. Clinical Indications: Acute post-operative pain management requested by the operative surgeon. Nerve Block Insertion Note Anes-nerve block: interscalene Patient position: supine Skin prep: chlorhexidine Needle: 22 gauge, stimulating, insulated echogenic needle. Needle length: 80 mm Technique: ultrasound Injectate: other (Bupiv 0.5% 15 mls. ) Observations: tolerated well Complications: none Procedure start time:: Procedure end time::
[2023-12-27] MEDS: ceFAZolin 2 GM/D5W 50 ML 2 GM/50 ML BAG IVPB (07:31)
[2023-12-27] MEDS: LIDO 1%/EPINEPHRINE 1:100,000 50 ML VIAL INFILTRATE (08:15)
--- NOTE | 2023-12-27 08:57 | P.OP_ITS ---
Procedure Note - Detailed Date of Procedure 12/27/23 Pre-op Diagnosis RIGHT rotator cuff tear, Acromioclavicular arthritis Post-op Diagnosis Same Procedure Performed Rotator cuff repair, distal clavicle excision Surgeon Moisés Nguyen MD Primary Montessori Teacher Cheyenne Corral Anesthesia General Description of Procedure Patient brought to the operative room #8. A general anesthetic was administered. The patient was placed in the beach chair position with the RIGHT shoulder exposed.? After sterile prep and drape, standard posterior and lateral portals were used for arthroscopy. The joint itself looked reasonably good the biceps tendon was intact.? There was fraying and tearing of the rotator cuff area in the supraspinatus tear region. This was gently debrided.? The subacromial space had an intense bursa, this was debrided with a shaver and acromioplasty performed arthroscopically.? The subacromial space was quite tight initially. I then proceeded to open the shoulder. A longitudinal incision made from the AC joint distalward over the shoulder.? Dissection carried down to the fascia. The fascia overlying the acromioclavicular joint was split. The AC joint found and a distal clavicle excision performed removing 3 to 4 millimeters of bone.? The edges beveled.? The deltoid was then split from the tip of the acromion. The remainder of the bursa was debrided.? The rotator cuff was torn in the supraspinatus interval. He had a large tear, about a quarter in size. This was debrided and repaired to bone using #2 Ethibond suture.? At this point the deltoid was repaired to itself,the acromion and the trapezius #2 Ethibond. The skin was closed with 2-0 Vicryl and hayley.? Sterile dressing applied patient tolerated well left the operating room satisfactory condition. Estimated Blood Loss 50 Drains No Packing No Pathology None sent Complications No immediate complications Condition Stable Disposition PACU [facility] Billing Surgery - Charge Forward: Surgery Billing ([id number] [address] [id number] [facility] [place])
== END 2023-12-27 10:54 | disposition home or self-care (01) ==
PROVIDERS: PCP Family Medicine; Visit Provider Orthopaedic Surgery
PROC: (CPT 29805; principal; 2023-12-27 07:30)
DX: M75.101 Unspecified rotator cuff tear or rupture of right shoulder, not specified as traumatic (principal); M19.011 Primary osteoarthritis, right shoulder; G89.18 Other acute postprocedural pain
CPT/HCPCS: 23412; 23120; 64415; A9270; J0330; J0690; J1100; J1885; J2003; J2004; J2250; J2371; J2405; J2704; J3010; J7030; J7120

== ENCOUNTER 2024-11-02 10:40 | Outpatient (CLI) | payer OTHER, SELFPAY ==
--- NOTE | 2024-11-02 10:42 | EST_ITS ---
Patient Info Name: Wisam Stewart Age: 68 years : 1955 Gender: Male Ht: 68 in Wt: 207 lbs BSA: 2.15 m2 HR: 69 bpm BP: 109 / 72 mmHg Exam Date: 11/02/2024 10:42 AM Patient Status: O Admit Date: 11/02/2024 Exam Type: CA stress test treadmill A treadmill exercise stress test was performed. Staff Attending Provider: Yu Seaman Exercise Technologist: Misty Kamara Exercise Physician: Raz Uribe DO Summary 1. 1. Negative Suman exercise stress test for ischemic ST changes by ECG criteria. 2. 2. Good functional capacity, achieving 7.7 METs of workload. 3. 3. Appropriate HR response to exercise. 4. 4. Appropriate HR recovery at 1 minute post exercise. 5. 5. No imaging with stress testing. 6. 6. Patient informed of the above results. Protocol: Suman Stress ECG Details Stage: REST Duration (min): 1 min : 51 sec Speed (mph): 0.0 Grade (%): 0 HR (bpm): 67 SBP (mmHg): 109 DBP (mmHg): 72 METS: --- Stage: REST Duration (min): 3 min : 25 sec Speed (mph): 0.0 Grade (%): 0 HR (bpm): 73 SBP (mmHg): 109 DBP (mmHg): 72 METS: --- Stage: RECOVERY Duration (min): 1 min : 38 sec Speed (mph): 0.0 Grade (%): 0 HR (bpm): 92 SBP (mmHg): 171 DBP (mmHg): 58 METS: --- Stage: RECOVERY Duration (min): 2 min : 38 sec Speed (mph): 0.0 Grade (%): 0 HR (bpm): 76 SBP (mmHg): 171 DBP (mmHg): 58 METS: --- Stage: RECOVERY Duration (min): 3 min : 38 sec Speed (mph): 0.0 Grade (%): 0 HR (bpm): 78 SBP (mmHg): 146 DBP (mmHg): 69 METS: --- Stage: RECOVERY Duration (min): 4 min : 38 sec Speed (mph): 0.0 Grade (%): 0 HR (bpm): 79 SBP (mmHg): 146 DBP (mmHg): 69 METS: --- Stage: RECOVERY Duration (min): 5 min : 38 sec Speed (mph): 0.0 Grade (%): 0 HR (bpm): 71 SBP (mmHg): 134 DBP (mmHg): 76 METS: --- Stage: RECOVERY Duration (min): 6 min : 38 sec Speed (mph): 0.0 Grade (%): 0 HR (bpm): 72 SBP (mmHg): 128 DBP (mmHg): 72 METS: --- Stage: RECOVERY Duration (min): 7 min : 8 sec Speed (mph): 0.0 Grade (%): 0 HR (bpm): 75 SBP (mmHg): 128 DBP (mmHg): 72 METS: --- Stage: STAGE 1 Duration (min): 1 min : 0 sec Speed (mph): 1.7 Grade (%): 10 HR (bpm): 102 SBP (mmHg): 109 DBP (mmHg): 72 METS: --- Stage: STAGE 1 Duration (min): 2 min : 0 sec Speed (mph): 1.7 Grade (%): 10 HR (bpm): 108 SBP (mmHg): 109 DBP (mmHg): 72 METS: --- Stage: STAGE 1 Duration (min): 3 min : 0 sec Speed (mph): 1.7 Grade (%): 10 HR (bpm): 110 SBP (mmHg): 158 DBP (mmHg): 61 METS: --- Stage: STAGE 2 Duration (min): 1 min : 0 sec Speed (mph): 2.5 Grade (%): 12 HR (bpm): 122 SBP (mmHg): 158 DBP (mmHg): 61 METS: --- Stage: STAGE 2 Duration (min): 2 min : 0 sec Speed (mph): 2.5 Grade (%): 12 HR (bpm): 130 SBP (mmHg): 156 DBP (mmHg): 60 METS: --- Stage: STAGE 2 Duration (min): 3 min : 0 sec Speed (mph): 2.5 Grade (%): 12 HR (bpm): 135 SBP (mmHg): 156 DBP (mmHg): 60 METS: --- Stage: STAGE 3 Duration (min): 0 min : 22 sec Speed (mph): 3.4 Grade (%): 14 HR (bpm): 138 SBP (mmHg): 156 DBP (mmHg): 60 METS: --- Stage: RECOVERY Duration (min): 0 min : 38 sec Speed (mph): 0.0 Grade (%): 0 HR (bpm): 128 SBP (mmHg): 171 DBP (mmHg): 58 METS: --- Rest HR: 73 bpm Peak HR: 138 bpm Rest Sys BP: 109 mmHg Peak Sys BP: 171 mmHg Max Pred HR: 154 bpm % Max Pred HR: 90 % Target HR: 131 bpm Max RPP: 23,598 bpm*mmHg Gan Score: 3 Termination Reason: Reached target heart rate or workload Cardiac Symptoms: Shortness of breath Max ST Seg Deviation: 0.70 mm Total Time: 6 min : 22 sec Rest Ortiz BP: 72 mmHg Peak Ortiz BP: 58 mmHg Angina Score: None Total METS: 7.7 Resting ECG Sinus rhythm. Stress ECG No ST changes. Arrhythmias None. Report Signatures
--- NOTE | 2024-11-02 10:42 | ECG_ITS ---
Test Date: 2024-11-02 11:32:44 Measurements Intervals [place] Rate: 65 P: 41 NE: 148 QRS: 7 QRSD: 90 T: -6 QT: 392 QTc: 410 Interpretive Statements SINUS RHYTHM BORDERLINE ST-T WAVE ABNORMALITY- INFERIOR LEADS BORDERLINE ECG No previous ECG available for comparison Electronically Signed On 11-02-2024 12:07:00 CDT by Raz Uribe D.O.
--- OUTSIDE RECORDS SUMMARY | 2024-11-02 10:44 | XMS_ITS | Clinical Summary ---
Author Organization [facility] Address [address] [place] [id number] Care Team Providers Care Mop Maker Name Role Phone Unavailable Primary Care Provider Unavailabl e Social History Tobacco Use Types Packs/Day Years Used Date Smoking Tobacco: Never Assessed Sex and Gender Information Value Date Recorded Sex Assigned at Not on file Legal Sex Male 8:25 PM CDT Gender Identity Not on file Sexual Orientation Not on file Plan of Treatment Health Maintenance Due Date Last Done Comments Colorectal Cancer Screening Colonoscopy (10 Years) 1955 Hepatitis C 11/20/1975 DTaP, Tdap and Td Vaccines ( 1 - Tdap) 1976 Pneumococcal Vaccine: 50+ Ye ars (1 of 1 - PCV) 11/20/2007 Zoster Vaccines (1 of 2) 11/20/2007 COVID-19 Vaccine ( - 2023-2 5 season) 2023 RSV Immunization or 60+ Years (1 - 1-dose 75+ series) 2032 Meningococcal B Vaccine Aged Out No l onger eligible based on patient's age to complete this topic Meningococcal Vaccine Aged Out No polly gary eligible based on patient's age to complete this topic RSV Immunizations Under 20 Months Aged Out No longer eligible based on patient's age to complete this topic
--- OUTSIDE RECORDS SUMMARY | 2024-11-02 10:44 | XMS_ITS | Clinical Summary ---
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
--- OUTSIDE RECORDS SUMMARY | 2024-11-02 10:44 | XMS_ITS | Patient Health Record ---
Author Organization [facility] Address [address] [place] [address] [place] [id number] Care Team Providers Care Gas Attendant Name Role Phone Walter Cooper DC Unavailable Unavailable Reason For Referral No Information Plan Of Treatment No Information
--- OUTSIDE RECORDS SUMMARY | 2024-11-02 10:44 | XMS_ITS | Clinical Summary ---
Author Organization [facility] Medical Office Building [address] Address [address] [place] [address] Care Team Providers Care Olive Picker Name Role Phone Ever Billingsley MD Primary Care Provider [phone] Allergies No known active allergies Medications ezetimibe (ZETIA) 10 mg tablet Take 1 tablet (10 mg total) by mouth daily 10/09/2023 Active losartan (COZAAR) 50 mg tablet Take 1 tablet (50 mg total) by mouth daily 08/07/2023 Active PARoxetine (PAXIL) 20 mg tablet Take 1 tablet (20 mg total) by mouth every morning 08/07/2023 Active benzonatate (TESSALON) 100 mg capsuleIndicati ons:Cough Take 1 capsule (100 mg total) by mouth 3 (three) times a day as needed for cough 42 capsule 10/28/2023 Active Active Problems No known active problems Social History Tobacco Use Types Packs/Day Years Used Date Smoking Tobacco: Never Assessed Personal Safety Answer Date Recorded Getting School Help Needed Not on file 10/27 Sex and Gender Information Value Date Recorded Sex Assigned at Not on file Legal Sex Male 2:15 PM [employer] Gender Identity Not on file Sexual Orientation Not on file Last Filed Vital Signs Vital Sign Reading Time Taken Comments Blood Pressure 130/70 10/28/2023 10:57 AM CDT Pulse 94 10/28/2023 10:57 AM CDT Temperature 37.1 C (98.7 F) 10/28/2023 10:57 AM CDT Respiratory Rate 22 10/28/2023 10:57 AM CDT Oxygen Saturation 97% 10/28/2023 10:57 AM CDT Inhaled Oxygen Concentration - - Weight 86.6 kg (191 lb) 10/28/2023 10:57 AM CDT Height 172.7 cm (5' 8) 10/28/2023 10:57 AM CDT Body Mass Index 29.04 10/28/2023 10:57 AM CDT Plan of Treatment Health Maintenance Due Date Last Done Comments Colon Cancer Screening-Colonoscopy 1957 Depression Screening 1957 Fall Risk Assessment 1955 Hepatitis C Screening 1955 Prostate Cancer Screening-PSA 1957 Hepatitis B Screening 11/20/1975 Pneumococcal vaccine 65+ (1 of 1 - PCV) 11/20/2007 Zoster Vaccine (1 of 2) 11/20/2007 Abdominal Aortic Aneurysm (A AA) Screen 2022 Well Visit 65+ 2022 Covid-19 Vaccine (4 - 2023-2 5 season) 2023 05/04/2021, 05/17/2020, 05/12/2020 Influenza Vaccine (#1) 2024 , 01/17/2018, 12/26/2014, Additional history exists DTaP/Tdap/Td Vaccine (2 - Td or Tdap) 11/03/2028 11/03/2018 Insurance Care Teams Olive Picker Relationship Specialty Start Date End Date Ever Billingsley MD PCP - General Internal Medicine 03/13/21
--- OUTSIDE RECORDS SUMMARY | 2024-11-02 10:44 | XMS_ITS | Encounter Summary ---
Author Organization [facility] Address 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
== END 2024-11-02 10:41 | disposition home or self-care (01) ==
PROVIDERS: PCP Nurse Practitioner Family; Visit Provider Nurse Practitioner Family
DX: R06.02 Shortness of breath (principal); R53.83 Other fatigue; I10 Essential (primary) hypertension
CPT/HCPCS: 93005; 93017